=== PATIENT | male | born 1985 | race Caucasian/White ===

== ENCOUNTER 2020-06-30 19:10 | Emergency (ER) | payer OTHER ==
[~2020-06-30] VITALS: Ht 172.7 cm; Wt 79.4 kg
[2020-06-30 20:00] VITALS: BP 145/102
== END 2020-06-30 20:00 | disposition home or self-care (01) ==
LOC: M.ERS 19:10
DX: J02.9 Acute pharyngitis, unspecified (principal); Z20.822 Contact with and (suspected) exposure to COVID-19

== ENCOUNTER 2020-09-02 09:16 | Emergency (ER) | payer OTHER ==
[~2020-09-02] VITALS: Ht 172.7 cm; Wt 86.2 kg
[2020-09-02] MEDS ORDERED: NAPROSYN500 M1 PO (09:39)
[2020-09-02 09:55] VITALS: BP 134/85
== END 2020-09-02 09:55 | disposition home or self-care (01) ==
LOC: M.ERS 09:16
DX: N20.0 Calculus of kidney (principal); N23 Unspecified renal colic